=== PATIENT | male | born 1985 | race African-American/Black ===

== ENCOUNTER 2016-12-05 11:28 | Emergency (ER) | payer BC, MEDICAID ==
[2016-12-05 11:40] VITALS: BP 130/64
--- NOTE | 2016-12-05 13:09 | ED ---
Skin Complaint - HPI Summary HPI Summary: [facility] resident here w/ bump on Rt side of nose for "a while now" but worse past 2 days since squeezing the area. Red, swollen and painful. No known h/o trauma - appears to have started as a pimple here. No known h/o MRSA. Denies facial pain elsewhere - moving eye well w/o pain, no visual change, breathing well, no neck pain, no ST no fever/chills/N/V/D. - History of Current Complaint Chief Complaint: EDRashSkinAbscess Time Seen by Provider: 12/05/16 12:28 Stated Complaint: RT EYE SWELLING Hx Obtained From: Patient Pain Intensity: 5 - Allergy/Home Medications Allergies/Adverse Reactions: Allergies Allergy/AdvReac Type Severity Reaction Status Date / Time No Known Allergies Allergy Verified 12/05/16 11:36 PMH/Surg Hx/FS Hx/Imm Hx Previously Healthy: Yes Endocrine/Hematology History: Denies: Autoimmune Disease Infectious Disease History: No Infectious Disease History: Denies: Hx of Known/Suspected MRSA, Traveled Outside the [place] in Last 30 Days - Family History Known Family History: Positive: None - Social History Lives: Skilled Nursing - resides at [facility] Alcohol Use: None Hx Substance Use: No Substance Use Type: Reports: None Smoking Status (MU): Current Every Day Smoker Review of Systems Negative: Fever, Chills, Fatigue Negative: Photophobia, Blurred Vision, Diplopia, Drainage, Erythema Negative: Dental Pain, Sore Throat, Ear Ache, Nasal Discharge Negative: Chest Pain Negative: Shortness Of Breath, Cough Gastrointestinal: Negative Positive: no symptoms reported Negative: Arthralgia, Myalgia Skin: Other - see HPI Neurological: Negative Negative: Headache Psychological: Normal All Other Systems Reviewed And Are Negative: Yes Physical Exam Triage Information Reviewed: Yes Vital Signs On Initial Exam: Initial Vitals Temp Pulse Resp BP Pulse Ox 98.8 F 95 16 130/64 99 12/05/16 11:37 12/05/16 11:37 12/05/16 11:37 12/05/16 11:37 12/05/16 11:37 Vital Signs Reviewed: Yes Appearance: Positive: Well-Appearing, No Pain Distress, Well-Nourished Skin: Positive: Warm, Dry - shiny erythematous, edematous area of skin over Rt nasal bridge - does not spread into periorbital region, cheek, nor forehead - central pustule Head/Face: Positive: Normal Head/Face Inspection - see above for skin details Eyes: Positive: Normal, EOMI, FIDEL, Conjunctiva Clear. Negative: Conjunctiva Inflammed, Discharge ENT: Positive: Normal ENT inspection, Hearing grossly normal, Pharynx normal, TMs normal. Negative: Nasal congestion, Nasal drainage Neck: Positive: Supple, Nontender, No Lymphadenopathy Respiratory/Lung Sounds: Positive: Clear to Auscultation, Breath Sounds Present. Negative: Stridor Cardiovascular: Positive: Normal, RRR Musculoskeletal: Positive: Normal, Strength/ROM Intact - FROM cervical spine w/ o pain or restriction Neurological: Positive: Normal, Sensory/Motor Intact, Alert, Oriented to Person Place, Time, CN Intact II-III Psychiatric: Positive: Normal Diagnostics - Vital Signs Vital Signs Temp Pulse Resp BP Pulse Ox 12/05/16 11:37 98.8 F 95 16 130/64 99 - Laboratory Lab Statement: Any lab studies that have been ordered have been reviewed, and results considered in the medical decision making process. Course/Dx - Course Course Of Treatment: Pt appears to have a cellulitis w/ shallow abscess - I&D is not warranted. Gave pt education about care instructions. Also reviewed danger s/sx of when to return to ED. Pt voices understanding and agrees w/ plan. - Diagnoses Provider Diagnoses: Facial abscess Discharge - Discharge Plan Condition: Stable Disposition: HOME Prescriptions: DOXYcycline CAP(*) [DOXYcycline 100MG CAP(*)] 100 mg PO BID #20 cap Patient Education Materials: Abscess (ED) Referrals: [facility] [Outside] No Primary Care Phys,NOPCP [Primary Care Provider] - Additional Instructions: You appear to have a facial abscess - apply warm compresses, take ibuprofen and complete course of antibiotics. Do not manipulate this area for risk of extracting contents into eye. If this area does rupture, wash daily with antibiotic soap and rinse well with water. Keep clean and cover with bandaid. Follow-up with PCP in 2-3 for wound check *If area of swelling increases around eye, you develop eye pain, headache, fever , chills, change in vision, neck pain, return to ED
[2016-12-05] MEDS ORDERED: DOXYcycline CAP(*) 100 MG PO ONE (13:16)
== END 2016-12-05 13:40 | disposition home or self-care (01) ==
LOC: ED 11:28
DX: L02.01 Cutaneous abscess of face (principal)
CPT/HCPCS: 99282; A9270-GY